=== PATIENT | male | born 2000 | race Caucasian/White ===

== ENCOUNTER 2021-10-08 22:35 | Emergency (ER) | payer OTHER, SELFPAY ==
--- NOTE | ~2021-10-08 | XR_ITS ---
XR finger 1st LT min 2V DATE: 10/09/2021 00:04 INDICATION: Laceration. Evaluate for foreign body. TECHNIQUE: 3 views COMPARISON: None FINDINGS: No fracture, dislocation, periosteal reaction or bone destruction. Mild subcutaneous emphys linda consistent with soft tissue laceration. No radiopaque soft tissue foreign body is detected. IMPRESSION: Soft tissue laceration; no radiopaque soft tissue foreign body. No fracture or dislocation or bone destruction Reviewed, dictated and finalized at location A.
[2021-10-08 22:38] VITALS: BP 145/73; PULSE 78; RESP 16; TEMP 36.7; O2SAT 99
--- NOTE | 2021-10-09 00:14 | ED.WOUNDLAC ---
HPI - Wound/Laceration General Chief Complaint: Wound/Laceration Stated Complaint: Left thumb laceration Time Seen by Provider: 10/08/21 23:41 Source: patient Mode of arrival: ambulatory Limitations: no limitations History of Present Illness HPI narrative: Patient is a 20-year-old male who presents the ED with report of a laceration to his left thumb. Patient reports he was working on a school project with an [employer] knife when the knife slipped and cut him on his left first digit. No other injuries. Tetanus status unknown. Good range of motion. No numbness, tingling, weakness. Related Data Home Medications Medication Instructions Recorded Confirmed No Home Medications 10/08/21 10/08/21 Allergies Allergy/AdvReac Type Severity Reaction Status Date / Time No Known Allergies Allergy Verified 10/08/21 22:40 Review of Systems Review of Systems: CONSTITUTIONAL: Denies fever. SKIN: Reports laceration to L 1st digit. MUSCULOSKELETAL: Denies joint pain. NEUROLOGIC: Denies tingling, numbness, or weakness. All systems reviewed & are unremarkable except as noted in HPI and below PMFSH Past Medical History Medical History (Updated 10/09/21 @ 00:49 by Brissa Kelly PA-C) No pertinent past medical history Surgical History Surgical History (Updated 10/09/21 @ 00:18 by Brissa Kelly PA-C) No pertinent past surgical history Social History Social History (Updated 10/09/21 @ 00:18 by Brissa Kelly PA-C) Smoking status: Never smoker Exam Narrative: GENERAL: Well appearing, well-nourished, non-toxic, in no acute distress. HEAD: Normocephalic, atraumatic. RESPIRATORY: Airway patent, respirations nonlabored. CARDIOVASCULAR: Regular rate and rhythm without murmurs, rubs, or gallops. Radial pulses 2+ and equal bilaterally. MUSCULOSKELETAL: Moves all extremities. Strength/ROM intact. Approximately 2 cm linear laceration along L 1st metacarpal bone. No active bleeding. SKIN: Warm, dry, normal color. No rashes. NEURO: A&O X3. Speech clear. Cranial nerves II-XII grossly intact. Steady gait. No ataxic movements. PSYCHIATRIC: Appropriate mood and affect. Normal interaction. Course Vital Signs Vital signs: Vital Signs Temperature 98.0 F 10/08/21 22:38 Pulse Rate 78 10/08/21 22:38 Respiratory Rate 16 10/08/21 22:38 Blood Pressure 145/73 H 10/08/21 22:38 Pulse Oximetry 99 10/08/21 22:38 Oxygen Delivery Room Air 10/08/21 22:38 Temperature 98.0 F 10/08/21 22:38 Pulse Rate 71 10/09/21 01:11 Respiratory Rate 16 10/09/21 01:11 Blood Pressure 117/50 L 10/09/21 01:11 Pulse Oximetry 100 10/09/21 01:11 Oxygen Delivery Room Air 10/08/21 22:38 Procedures Laceration Laceration 1: Date: 10/09/21 Time: 00:20 Site: hand (L 1st digit) Side (If applicable): left Size (cm): 2 Description: linear Depth: simple, single layer Local Anesthetic: other anesthetic (digital block) Pre-repair: wound explored and irrigated extensively ====== Skin Level ====== Skin layer closed with: nylon Size (cm): 4-0 Number of sutures: 3 Technique: simple, interrupted ====== Subcutaneous Layer ====== ====== Muscle Layer ====== ====== Tendon Layer ====== Nerve Block Nerve Block 1: Nerve block date: 10/09/21 Nerve block time: 00:15 Time out performed: Yes Local Anesthetic: lidocaine 1% Amount of anesthesia used (mL): 5 Side: left Nerve Blocks: digital (L 1st digit) Procedure Successful: Yes Patient Tolerated Procedure: well and no complications Complications: none MDM - Wound/Laceration MDM Narrative Medical decision making narrative: Patient presented to ED with laceration to left thumb after using an X-Acto knife. Vital signs stable upon arrival. No other injuries. Bleeding controlled upon initial evaluation. Wound linear
[2021-10-09 01:11] VITALS: BP 117/50; PULSE 71; RESP 16; O2SAT 100
== END 2021-10-09 01:11 | disposition home or self-care (01) ==
PROVIDERS: Emergency Provider Emergency Medicine
DX: S61.012A Laceration without foreign body of left thumb without damage to nail, initial encounter (principal); W26.0XXA Contact with knife, initial encounter
CPT/HCPCS: 12001; 73140; 99283

== ENCOUNTER 2022-02-04 14:27 | Outpatient (CLI) | payer OTHER, SELFPAY ==
--- NOTE | 2022-02-05 14:23 | WPDPFTINT ---
PFT Procedure Performed PFT Procedure Performed Plethysmography (Lung Vol) Diffusing Cap (DLCO) Flow Vol Loop Spirometry w/o Bronchodil PFT Interpretation DOS: 02/04/2022 REQUESTING: Aisha Hartman APRN REASON FOR TESTING: Shortness of breath PULMONARY FUNCTION TESTS Results are reliable and reproducible. Spirometry: FEV1 is 5.19 L, 130% predicted, above the normal range. FVC is 6.34 L, 136% predicted, above the normal range. FEV1/FVC is 82%, normal. No bronchodilator was given. Lung volumes: Total lung capacity is 7.97 L, 132% predicted, consistent with mild hyperinflation. FRC is 2.73 L, 89% predicted, normal. Residual volume is 1.27 L, 95% predicted, normal. RV/TLC is normal. There is no air trapping. Airway resistance is 127%, normal. Diffusion: DLCO 43.9 ml/min/mmHg, 117% predicted, normal range. DLCO/VA is 5.34 ml/min/mmHg/L, 98%, normal. Flow volume loop: There is subtle flattening of the inspiratory and expiratory limbs, and these changes are not completely reproducible. This appearance may be due to the supranormal spirometry values. IMPRESSION: This study shows supranormal values for spirometry, no airflow obstruction, mild hyperinflation without air trapping and normal diffusion. The change in the flow volume loop is nonspecific. Luanne Wang MD
== END 2022-02-04 14:28 | disposition home or self-care (01) ==
PROVIDERS: Visit Provider Nurse Practitioner Psychiatric/Mental Health
DX: R06.02 Shortness of breath (principal)
CPT/HCPCS: 94375; 94726; 94729

== ENCOUNTER 2022-03-02 08:48 | Emergency (ER) | payer OTHER, SELFPAY ==
--- NOTE | 2022-03-02 08:53 | ED.URI ---
HPI - URI/Sore Throat General Chief Complaint: Upper Respiratory Infection Stated Complaint: LOSS OF VOICE/COUGH/SORE THROAT Time Seen by Provider: 03/02/22 08:53 Source: patient and RN notes reviewed History of Present Illness HPI Narrative: Patient is a 21-year-old male who presents to urgent care with complaints of sore throat, loss of voice, hoarseness and mild cough. Patient states he did try a new vape a couple days ago and assumed that is what it may have been from. Patient states that he has been taking an antihistamine. 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 Patient is not tested himself for COVID at home but denies any body aches or fever. No other acute complaints. No acute distress noted. Patient aware of the plan of care. Some parts of this dictation were generated by voice recognition software and may contain typographical and/or grammatical inaccuracies. Related Data Home Medications Medication Instructions Recorded Confirmed sertraline 50 mg tablet 50 mg PO DAILY 03/02/22 03/02/22 Allergies Allergy/AdvReac Type Severity Reaction Status Date / Time No Known Allergies Allergy Verified 03/02/22 09:02 Review of Systems Review of Systems: CONSTITUTIONAL: Denies fever, chills, or sweats. EYES: Denies visual changes, redness, or discharge. ENT: Reports of congestion, mild sore throat and hoarseness CARDIOVASCULAR: Denies chest pain, palpitations, or edema. RESPIRATORY: Reports a cough without dyspnea GASTROINTESTINAL: Denies abdominal pain, nausea, vomiting, or diarrhea. GENITOURINARY: Denies dysuria or hematuria. SKIN: Denies rash or itching. MUSCULOSKELETAL: Denies back pain, joint pain, or myalgia. NEUROLOGIC: Denies headache, numbness, or weakness. All other systems reviewed are negative, except as documented in HPI. [facility] Past Medical History Medical History (Updated 03/02/22 @ 09:18 by SHOAIB Zaman) No pertinent past medical history Surgical History Surgical History (Updated 10/09/21 @ 00:18 by Brissa Mckeon PA-C) No pertinent past surgical history Social History Social History (Updated 10/09/21 @ 00:18 by Brissa Mckeon PA-C) Smoking status: Never smoker Comments At the time of my signature, I reviewed and agree with the nursing past medical, surgical, social, and family history. There is no relevant family history pertinent to the patient complaint. Exam Narrative: GENERAL: This is a well-nourished, well-developed patient, in no apparent distress. HEAD: normocephalic, atraumatic. EYES: PERRL. Sclera clear/white. Vision is grossly intact. EARS: External ears normal, auditory canals clear and without drainage, TMs normal without perforation. Hearing grossly intact. NOSE: External nose normal with no obvious nasal discharge, nares without redness, no rhinorrhea. THROAT: Mucous membranes moist, posterior pharynx clear. Mild postnasal drainage; notable hoarseness NECK: Neck supple, non-tender without lymphadenopathy, masses or thyromegaly. CARDIOVASCULAR: Regular rate and rhythm without murmurs, gallops, or rubs. RESPIRATORY: Clear to auscultation. Breath sounds equal bilaterally. No wheezes, rales, or rhonchi. SKIN: warm, intact with no suspicious lesions or rash, good texture and turgor. NEURO: awake, alert, and oriented to person, place and time. There were no obvious focal neurologic abnormalities. EXTREMITIES: No clubbing, cyanosis, or edema. Course Course Level of Care: Express Care Visit Vital Signs Vital signs: Vital Signs Temperature 99.1 F 03/02/22 09:02 Pulse Rate 88 03/02/22 09:02 Respiratory Rate 16 03/02/22 09:02 Blood Pressure 136/84 03/02/22 09:02 Pulse Oximetry 100 03/02/22 09:02 Temperature 99.1 F 03/02/22 09:04 Pulse Rate 88 03/02/22 09:04 Respiratory Rate 16 03/02/22 09:04 Blood Pressure 136/84 03/02/22 09:04 Pulse Oximetry 100 03/02/22 09:04 Reviewed
[2022-03-02 09:02] VITALS: BP 136/84; PULSE 88; RESP 16; TEMP 37.3; O2SAT 100
[2022-03-02 09:04] VITALS: BP 136/84; PULSE 88; RESP 16; TEMP 37.3; O2SAT 100
== END 2022-03-02 09:23 | disposition home or self-care (01) ==
PROVIDERS: Emergency Provider Nurse Practitioner Family; PCP Family Medicine
DX: J04.0 Acute laryngitis (principal)
CPT/HCPCS: 87804; 99213; G0463

== ENCOUNTER → 2022-09-12 11:57 | Outpatient (CLI) | payer OTHER, SELFPAY ==
--- NOTE | ~2022-09-12 | XR_ITS ---
Left Knee Technique: AP, lateral, and sunrise views were obtained. Clinical History: Injury Findings: No fracture or dislocation is seen. Osseous alignment is anatomic. Joint spaces are preserv ed without degenerative or erosive change. Soft tissues are unremarkable. No joint effusion is seen. Impression: Unremarkable left knee radiographs. Reviewed, dictated and finalized at location . Impression: Unremarkable left knee radiographs.
== END ==
PROVIDERS: PCP Family Medicine; Visit Provider Nurse Practitioner Family
DX: S89.92XA Unspecified injury of left lower leg, initial encounter (principal); X58.XXXA Exposure to other specified factors, initial encounter
CPT/HCPCS: 73564

== ENCOUNTER 2023-03-28 10:19 | Outpatient (CLI) | payer OTHER, SELFPAY ==
[2023-03-28 13:12] LABS: Alanine Aminotransferase 28 U/L (6-50); Albumin Level 4.9 g/dL (3.5-5.1); Alkaline Phosphatase 64 U/L (38-126); Anion Gap 10 mmol/L (8-16); Aspartate Amino Transferase 35 U/L (17-59); Bilirubin,Total 0.8 mg/dL (0.2-1.3); Blood Urea Nitrogen 15 mg/dL (9-20); Calcium 9.8 mg/dL (8.4-10.2); Carbon Dioxide 29 mmol/L (22-30); Chloride 99 mmol/L (98-107); Cholesterol 194 mg/dL (0-200); Estimated Glomerular Filt Rate > 60; Glucose 90 mg/dL (65-110); HDL Direct 33 mg/dL; Potassium 4.2 mmol/L (3.4-5.0); Sodium 138 mmol/L (137-145); Triglycerides 118 mg/dL (<150)
[2023-03-28 13:23] LABS: LDL Cholesterol Direct 120 mg/dL
== END 2023-03-28 10:20 | disposition home or self-care (01) ==
LOC: ANHGOSHLAB 10:21
PROVIDERS: PCP Family Medicine; Visit Provider Family Medicine
DX: Z13.220 Encounter for screening for lipoid disorders (principal); Z13.228 Encounter for screening for other metabolic disorders
CPT/HCPCS: 36415; 80053; 80061

== ENCOUNTER 2023-04-11 09:01 | Outpatient (CLI) | payer OTHER, SELFPAY ==
--- NOTE | ~2023-04-11 | MR_ITS ---
MRI of the left knee Clinical history: Injury, pain Technique: Coronal proton density and proton density-weighted images, sagittal proton-density and T2 fat-sat images, and axial proton-density fat-saturated images were acquired. Findings: Anterior and posterior cruciate ligaments are intact. Medial collateral ligament and the la teral collateral ligament complex are intact. Popliteus tendon is intact. Medial and lateral menisci are intact, without evidence of tear. Articular cartilage is well preserved throughout the knee. Bone marrow signals are unremarkable. Extensor mechanism is intact. No joint effusion or Green's cyst. Impression: No significant abnormality seen. Reviewed, dictated and finalized at location . 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
== END 2023-04-11 09:02 ==
LOC: GOSHIMG 09:02
PROVIDERS: PCP Family Medicine; Visit Provider Orthopaedic Surgery
DX: S89.92XA Unspecified injury of left lower leg, initial encounter (principal); X58.XXXA Exposure to other specified factors, initial encounter
CPT/HCPCS: 73721

== ENCOUNTER 2023-05-23 10:12 | Outpatient (CLI) | payer OTHER, SELFPAY ==
[2023-05-23 12:28] LABS: Basophils Absolute Auto 0.1 K/mm3 (0.0-0.1); Eosinophils Absolute Auto 0.4 K/mm3 (0-0.3); Eosinophils Percent Auto 6.7 % (0-4.4); Hematocrit 45.2 % (42.0-52.0); Hemoglobin 14.7 g/dL (14.0-18.0); Immature Granulocyte Absolute 0.01 K/mm3 (0.00-0.031); Immature Granulocyte Percent A 0.2 % (0-0.5); Lymphocytes Absolute Auto 1.93 K/mm3 (0.9-3.2); Lymphocytes Percent Auto 32.2 % (18.3-44.2); Mean Corpuscular HGB Conc 32.5 g/dl (32-36); Mean Corpuscular Hemoglobin 28.7 pg (26-34); Mean Corpuscular Volume 88.3 fl (80-100); Mean Platelet Volume 9.7 fl (7.4-10.4); Monocytes Absolute Auto 0.5 K/mm3 (0.1-0.6); Monocytes Percent Auto 8.2 % (2.6-8.5); Neutrophils Absolute Auto 3.1 K/mm3 (1.3-6.7); Neutrophils Percent Auto 51.7 % (45.5-73.1); Platelet Count Result 371 k/mm3 (150-375); Red Blood Count 5.12 M/mm3 (4.6-6.20); Red Cell Distribution Width 13.2 % (11.5-14.5)
[2023-05-28 05:48] LABS: Prolactin 8.9 ng/mL (***)
[2023-05-28 14:59] LABS: Testosterone Free 84.9 pg/mL (35.0-155.0); Testosterone Total 442 ng/dL (250-1100)
== END 2023-05-23 10:13 | disposition home or self-care (01) ==
LOC: ANHGOSHLAB 10:14
PROVIDERS: PCP Family Medicine; Visit Provider Family Medicine
DX: R68.82 Decreased libido (principal); R53.83 Other fatigue; Z13.29 Encounter for screening for other suspected endocrine disorder
CPT/HCPCS: 36415; 84146; 84402; 84403; 84443; 85025

== ENCOUNTER 2023-06-26 12:27 | Emergency (ER) | payer OTHER, SELFPAY ==
[2023-06-26 12:47] VITALS: BP 154/90; PULSE 97; RESP 16; TEMP 37.9; O2SAT 100
--- NOTE | 2023-06-26 12:51 | ED.GENADULT ---
HPI - General Adult General Chief complaint: Upper Respiratory Infection Stated complaint: TIRED/SORE THROAT/SINUS PRESSURE Source: patient, RN notes reviewed and old records reviewed Mode of arrival: ambulatory Limitations: no limitations History of Present Illness HPI narrative: 22-year-old male patient presents to [facility] with complaints of cough, congestion, sore throat, myalgia, chills, fever that started 2-3 days ago. Patient taking [id number] medications with little relief. Patient denies chest pain, this shortness of breath, dizziness, weakness. Patient's blood pressure repeated manually blood pressure 120/58. Related Data Home Medications Medication Instructions Recorded Confirmed No Home Medications 06/26/23 06/26/23 Allergies Allergy/AdvReac Type Severity Reaction Status Date / Time SSRI Allergy Mild Diarrhea Uncoded 06/26/23 12:41 Review of Systems Constitutional: Constitutional: Reports no additional constitutional complaints, Reports body ache(s), Denies chills, Denies fatigue, Reports fever(s) and Reports headache(s) Eyes: Eyes: Reports no additional eye complaints and Denies blurry vision ENT: Reports system reviewed and no additional complaints, except as documented, Denies vertigo, Denies dizziness, Denies ear discharge, Denies otalgia, Denies facial pain, Denies headache(s), Reports nasal congestion, Reports nasal discharge, Denies sinus pain, Reports sinus pressure and Reports sore throat Cardiovascular: Cardiovascular: Reports no additional cardiovascular complaints, Denies chest pain, Denies chest pain at rest, Denies rapid heart rate and Denies dyspnea Respiratory: Respiratory: Reports no additional respiratory complaints, Reports chest congestion, Reports cough, Denies pain on inspiration, Denies pain with cough and Denies dyspnea Gastrointestinal: Gastrointestinal: Denies abdominal pain, Denies diarrhea, Denies nausea and Denies vomiting Integumentary/Breasts: Skin/Breast: Denies rash Neurologic: Reports system reviewed and no additional complaints, except as documented, Denies vertigo, Denies dizziness and Denies headache(s) Endocrine: Endocrine: Denies fatigue PMFSH Past Medical History Medical History Left knee injury No pertinent past medical history Surgical History Surgical History No pertinent past surgical history Social History Social History Smoking status: Never smoker Alcohol intake: current Drinks per week: 2 Substance use: never Substance use type: does not use Lack of Transportation: No Lack of Food: Never True Current Housing: I Have Housing Concerned About Future Housing: No Difficulty Paying Gas/Electric Bills: No Difficulty Paying for Meds: No Currently Unemployed: No Education: Bachelor's Degree Difficulty w/ Childcare or Family Care: No Living arrangements: with friend(s) Comments At the time of my signature, I reviewed and agree with the nursing past medical, surgical, social, and family history. There is no relevant family history pertinent to the patient complaint. Exam Const: General: cooperative, healthy appearing, no acute distress and well nourished Nutritional Appearance: well nourished Orientation/consciousness: patient oriented x3 Limitations: no limitations HENMT: Head: normal to inspection and normocephalic Ears: external ears normal, TM's normal bilaterally, EAC's normal and mastoids normal Face/Nose/Sinus: Normal nasal mucous membranes and turbinates present and normal facial exam Face and sinus: normal facial exam Mouth: Yes Normal oral and palatal mucosa present, Yes oropharynx normal and Yes moist mucous membranes Throat: tonsils normal, uvula midline, posterior oropharynx abnormal erythema and no uvular edema Eyes: General
== END 2023-06-26 13:25 | disposition home or self-care (01) ==
PROVIDERS: Emergency Provider Registered Nurse; PCP Family Medicine
DX: J10.1 Influenza due to other identified influenza virus with other respiratory manifestations (principal); Z20.822 Contact with and (suspected) exposure to COVID-19
CPT/HCPCS: 87081; 87426; 87804; 87880; 99213; G0463